=== PATIENT | female | born 1990 ===

== ENCOUNTER 2021-04-20 23:04 | Emergency (ER) | payer MEDICAID ==
[2021-04-21] MEDS ORDERED: CYCLOBENZAPRINE 10 MG TAB PO ONE (07:03)
[2021-04-21] MEDS ORDERED: KETOROLAC 60 MG/2 ML INJ IM ONE (07:03)
[2021-04-21] MEDS ORDERED: predniSONE 20 MG TAB PO ONE (07:03)
--- NOTE | 2021-04-21 07:41 | Emergency Department Report ---
ED Chest Pain HPI - General Chief Complaint: Chest Pain Stated Complaint: SOB/CP X 2 DAYS Time Seen by Provider: 04/21/21 06:44 Source: patient Mode of arrival: Ambulatory Limitations: No Limitations - History of Present Illness Initial Comments: This is a 30-year-old female nontoxic, well nourished in appearance, no acute signs of distress presents to the ED with c/o of left sided thoracic paraspinal pain with radiation to left shoulder and chest with a tingling sensation towards left arm times several days. Patient denies any injuries or trauma. Patient stated pain is aggravated with movement. Patient stated has some shortness of breath associated with the pain. Patient describes pain as sharp intermittently. Patient denies any upper respiratory symptoms. Patient denies any hemoptysis, fever, chills, nausea, vomiting, headache, stiff neck, numbness, tingling, abdominal pain. Patient denies pleuritic chest pain. Patient denies any recent travels or long car rides. Patient denies any recent surgeries or any sick contacts. Patient denies any drug allergies or significant past medical history. Patient stated had 2 negative PCR test and 1 negative rapid test for COVID. Patient stated she is COVID vaccinated as well. MD Complaint: chest pain -: days(s) Pain Location: other (left throacic paraspinal) Pain Radiation: LUE, other (chest) Severity: mild Quality: sharp Consistency: intermittent Improves With: rest Worsens With: palpation, movement re: denies: nausea, vomting, diaphoresis, dyspnea, sense of impending doom Other Symptoms: denies: cough, fever, syncope, rash, acid taste in mouth, leg swelling, palpitations, burping Treatments Prior to Arrival: none Aspirin use within the Past 7 Days: (0) No - Related Data On Oral Contraceptives: No Previous Rx's Medication Instructions Recorded Last Taken Type Cyclobenzaprine [Flexeril] 10 mg PO QHS PRN #10 tab 04/21/21 Unknown Rx Naproxen 500 mg PO Q12H PRN #12 tab 04/21/21 Unknown Rx Allergies Allergy/AdvReac Type Severity Reaction Status Date / Time No Known Allergies Allergy Unverified 04/20/21 23:08 Heart Score - HEART Score History: Slightly suspicious EKG: Normal Age: < 45 Risk factors: No known risk factors Troponin: < normal limit HEART Score: 0 - EKG Read Time Time EKG Completed: 23:59 EKG Read Time: 00:00 - Critical Actions Critical Actions: 0-3 pts:0.9-1.7%risk of adverse cardiac event.Candidate for discharge ED Review of Systems ROS: Stated complaint: SOB/CP X 2 DAYS Other details as noted in HPI Comment: All other systems reviewed and negative Constitutional: denies: chills, fever Eyes: denies: eye pain, eye discharge, vision change ENT: denies: ear pain, throat pain Respiratory: shortness of breath. denies: cough, wheezing Cardiovascular: chest pain. denies: palpitations Endocrine: no symptoms reported Gastrointestinal: denies: abdominal pain, nausea, diarrhea Genitourinary: denies: urgency, dysuria, discharge Musculoskeletal: back pain. denies: joint swelling, arthralgia Skin: denies: rash, lesions Neurological: denies: headache, weakness, paresthesias Psychiatric: denies: anxiety, depression Hematological/Lymphatic: denies: easy bleeding, easy bruising ED Past Medical Hx - Medications Home Medications: Home Medications Medication Instructions Recorded Confirmed Last Taken Type Cyclobenzaprine [Flexeril] 10 mg PO QHS PRN #10 tab 04/21/21 Unknown Rx Naproxen 500 mg PO Q12H PRN #12 tab 04/21/21 Unknown Rx ED Physical Exam - General Limitations: No Limitations General appearance: alert, in no apparent distress - Head Head exam: Present: atraumatic, normocephalic - Eye Eye exam: Present: normal appearance - Neck Neck exam: Present: normal inspection, full ROM. Absent: tenderness, meningismus, lymphadenopathy - Respiratory Respiratory exam: Present: normal lung sounds bilaterally, chest wall tenderness (left side). Absent: respiratory distress, wheezes, rales, rhonchi, stridor, accessory muscle use, decreased breath sounds, prolonged expiratory - Cardiovascular Cardiovascular Exam: Present: regular rate, normal rhythm, normal heart sounds. Absent: bradycardia, tachycardia, irregular rhythm, systolic murmur, diastolic murmur, rubs, gallop - GI/Abdominal GI/Abdominal exam: Present: soft, normal bowel sounds. Absent: distended, tenderness, guarding, rebound, rigid - Extremities Exam Extremities exam: Present: normal inspection, full ROM, normal capillary refill. Absent: tenderness - Back Exam Back exam: Present: normal inspection, full ROM, paraspinal tenderness (left throacic paraspainal ). Absent: tenderness, CVA tenderness (R), CVA tenderness (L), muscle spasm, vertebral tenderness, rash noted - Expanded Back Exam Expanded Back exam: Absent: saddle anesthesia Back exam: Negative Straight Leg Raising: Left, Right 1 - pain here - Neurological Exam Neurological exam: Present: alert, oriented X3 - Psychiatric Psychiatric exam: Present: normal affect, normal mood - Skin Skin exam: Present: warm, dry, intact, normal color. Absent: rash ED Course Vital Signs 04/20/21 04/21/21 04/21/21 23:09 11:23 11:45 Temperature 98.2 F 98.7 F 98.0 F Pulse Rate 99 H 76 79 Respiratory 20 18 16 Rate Blood Pressure 149/88 Blood Pressure 146/75 112/66 [Right] O2 Sat by Pulse 100 100 100 Oximetry - Reevaluation(s) Reevaluation #1: 04/21/21 07:40 Patient is speaking in full sentences with no signs of distress noted. Reevaluation #2: 04/21/21 09:36 Upon reevaluation, patient's pain has significantly resolved since ED treatment. A repeat EKG and troponin will be obtained and if within normal limits patient will be discharged with appropriate follow-up ABRAHAM score - Abraham Score Age > 65: (0) No Aspirin use within the Past 7 Days: (0) No 3 or more CAD Risk Factors: (0) No 2 or more Angina events in past 24 hrs: (0) No Known CAD with more than 50% Stenosis: (0) No Elevated Cardiac Markers: (0) No ST Deviation Greater than 0.5mm: (0) No ABRAHAM Score: 0 ED Medical Decision Making - Lab Data Result diagrams: 04/21/21 07:17 04/21/21 07:17 Lab Results 04/21/21 04/21/21 04/21/21 Range/Units 07:17 07:17 07:17 WBC 9.3 (4.5-11.0) K/mm3 RBC 4.56 (3.65-5.03) M/mm3 Hgb 12.4 (10.1-14.3) gm/dl Hct 39.2 (30.3-42.9) % MCV 86 (79-97) fl MCH 27 L (28-32) pg MCHC 32 (30-34) % RDW 14.2 (13.2-15.2) % Plt Count 252 (140-440) K/mm3 Lymph % (Auto) 21.9 (13.4-35.0) % Iron % (Auto) 7.3 (0.0-7.3) % Eos % (Auto) 0.2 (0.0-4.3) % Baso % (Auto) 0.7 (0.0-1.8) % Lymph # (Auto) 2.0 (1.2-5.4) K/mm3 Iron # (Auto) 0.7 (0.0-0.8) K/mm3 Eos # (Auto) 0.0 (0.0-0.4) K/mm3 Baso # (Auto) 0.1 (0.0-0.1) K/mm3 Seg Neutrophils % 69.9 (40.0-70.0) % Seg Neutrophils # 6.5 (1.8-7.7) K/mm3 PT (12.2-14.9) Sec. INR (0.87-1.13) APTT (24.2-36.6) Sec. D-Dimer (0-234) ng/mlDDU Sodium 144 (137-145) mmol/L Potassium 3.8 (3.6-5.0) mmol/L Chloride 110.6 H (98-107) mmol/L Carbon Dioxide 21 L (22-30) mmol/L Anion Gap 16 mmol/L BUN 9 (7-17) mg/dL Creatinine 0.8 (0.6-1.2) mg/dL Estimated GFR > 60 ml/min BUN/Creatinine Ratio 11 % Glucose 89 (65-100) mg/dL Calcium 9.7 (8.4-10.2) mg/dL Total Bilirubin 0.20 (0.1-1.2) mg/dL AST 12 (5-40) units/L ALT 10 (7-56) units/L Alkaline Phosphatase 84 (35-129) units/L Troponin T < 0.010 (0.00-0.029) ng/mL Total Protein 7.7 (6.3-8.2) g/dL Albumin 4.7 (3.9-5) g/dL Albumin/Globulin Ratio 1.6 % HCG, Qual Negative (Negative) 04/21/21 04/21/21 Range/Units 07:17 10:27 WBC (4.5-11.0) K/mm3 RBC (3.65-5.03) M/mm3 Hgb (10.1-14.3) gm/dl Hct (30.3-42.9) % MCV (79-97) fl MCH (28-32) pg MCHC (30-34) % RDW (13.2-15.2) % Plt Count (140-440) K/mm3 Lymph % (Auto) (13.4-35.0) % Iron % (Auto) (0.0-7.3) % Eos % (Auto) (0.0-4.3) % Baso % (Auto) (0.0-1.8) % Lymph # (Auto) (1.2-5.4) K/mm3 Iron # (Auto) (0.0-0.8) K/mm3 Eos # (Auto) (0.0-0.4) K/mm3 Baso # (Auto) (0.0-0.1) K/mm3 Seg Neutrophils % (40.0-70.0) % Seg Neutrophils # (1.8-7.7) K/mm3 PT 13.3 (12.2-14.9) Sec. INR 0.91 (0.87-1.13) APTT 29.7 (24.2-36.6) Sec. D-Dimer 135.00 (0-234) ng/mlDDU Sodium (137-145) mmol/L Potassium (3.6-5.0) mmol/L Chloride (98-107) mmol/L Carbon Dioxide (22-30) mmol/L Anion Gap mmol/L BUN (7-17) mg/dL Creatinine (0.6-1.2) mg/dL Estimated GFR ml/min BUN/Creatinine Ratio % Glucose (65-100) mg/dL Calcium (8.4-10.2) mg/dL Total Bilirubin (0.1-1.2) mg/dL AST (5-40) units/L ALT (7-56) units/L Alkaline Phosphatase (35-129) units/L Troponin T < 0.010 (0.00-0.029) ng/mL Total Protein (6.3-8.2) g/dL Albumin (3.9-5) g/dL Albumin/Globulin Ratio % HCG, Qual (Negative) - EKG Data 04/21/21 23:59 Sinus arrhythmia 72 bpm. Atrial premature complex. Some ST elevation which are normal early repolarization pattern. No STEMI. Reviewed and signed by MD. 04/21/21 09:51 Sinus sinus rhythm at 62 bpm. Atrial premature complex. No significant ST or T wave abnormalities. Reviewed and signed by - Radiology Data [facility] [address] [place] [address] XRay Report Signed Patient: ROGELIO KENYON MR#: [id number] 0 : 1990 Acct:[id number] Age/Sex: 30 / F ADM Date: 04/20/21 Loc: ED Attending Dr: Ordering Physician: ADITYA MATTHEW NP Date of Service: 04/21/21 Procedure(s): XR chest routine 2V Accession Number(s): [id number] cc: ADITYA MATTHEW NP Fluoro Time In Minutes: CHEST 2 VIEWS INDICATION: Chest Pain. COMPARISON: None. FINDINGS: Support devices: None. Heart: Within normal limits. Lungs/Pleura: No acute air space or interstitial disease. No significant pleural effusion. IMPRESSION: No acute findings. Signer Name: Brandon Martinez MD Signed: 04/21/2021 8:49 AM Workstation Name: [id number] Transcribed By: ES Dictated By: Brandon Martinez MD Electronically Authenticated By: Brandon Martinez MD Signed Date/Time: 04/21/21848 DD/ 7 TD/TT: - Medical Decision Making This is a 30-year-old female that presents with chest pain and muscle strain. Patient is stable and was examined by me. ABRAHAM and HEART score 0 pints. PERC score for DVT/SVT/PE 0 points. Negative d-dimmer. EKG normal sinus rhythm with no significant changes in ST. Chest xray dictated by the radiologist. PAtient i s notified of the Xray report with no questions noted. Labs within normal limits. Negative troponin x2. Patient received treatment in the ED which stated symptoms are improving subsided. Patient was instructed to Follow-up with a primary care/manager sales doctor in 2 days or if symptoms worsen and continue return to emergency room as soon as possible. At time of discharge, the patient does not seem toxic or ill in appearance. No acute signs of distress noted. Patient agrees to discharge treatment plan of care. No further questions noted by the patient. Critical care attestation.: If time is entered above; I have spent that time in minutes in the direct care of this critically ill patient, excluding procedure time. ED Disposition Clinical Impression: Muscle strain Chest pain, unspecified Qualifiers: Chest pain type: unspecified Qualified Code(s): R07.9 - Chest pain, unspecified Disposition: HOME / SELF CARE / HOMELESS Is pt being admited?: No Does the pt Need Aspirin: No Condition: Stable Instructions: Cyclobenzaprine tablets, Nonspecific Chest Pain, Adult Additional Instructions: Follow-up with a primary care/manager sales doctor in 2 days or if symptoms worsen and continue return to emergency room as soon as possible. Take naproxen and Flexeril as prescribed. Do not operate heavy machinery while taking Flexeril due to sedation Prescriptions: Cyclobenzaprine [Flexeril] 10 mg PO QHS PRN #10 tab PRN Reason: Muscle Spasm Naproxen 500 mg PO Q12H PRN #12 tab PRN Reason: Pain , Severe (7-10) Referrals: ALMA ROSA TURNER MD [Staff Physician] - 04/22/21 MARY GARCIA MD [Staff Physician] - 04/22/21 PRIMARY CAREMD [Primary Care Provider] - AMIE Forms: Work/School Release Form(ED) Time of Disposition: 11:24
[2021-04-21 07:57] LABS: Basophils # (Auto) 0.1 K/mm3 (0.0-0.1); Basophils % (Auto) 0.7 % (0.0-1.8); Eosinophils % (Auto) 0.2 % (0.0-4.3); Hematocrit 39.2 % (30.3-42.9); Hemoglobin 12.4 gm/dl (10.1-14.3); Lymphocytes % (Auto) 21.9 % (13.4-35.0); Mean Corpuscular HGB Conc 32 % (30-34); Mean Corpuscular Volume 86 fl (79-97); Monocytes # (Auto) 0.7 K/mm3 (0.0-0.8); Monocytes % (Auto) 7.3 % (0.0-7.3); Platelet Count 252 K/mm3 (140-440); Red Blood Count 4.56 M/mm3 (3.65-5.03); Red Cell Distribution Width 14.2 % (13.2-15.2)
[2021-04-21 08:07] LABS: INR 0.91 (0.87-1.13); Partial Thromboplastin Time 29.7 Sec. (24.2-36.6)
[2021-04-21 08:23] LABS: Alanine Aminotransferase 10 units/L (7-56); Albumin 4.7 g/dL (3.9-5); BUN/Creatinine Ratio 11; Blood Urea Nitrogen 9 mg/dL (7-17); Calcium 9.7 mg/dL (8.4-10.2); Hemolysis Index 7
--- NOTE | 2021-04-21 08:53 | XRay Report ---
CHEST 2 VIEWS INDICATION: Chest Pain. COMPARISON: None. FINDINGS: Support devices: None. Heart: Within normal limits. Lungs/Pleura: No acute air space or interstitial disease. No significant pleural effusion. IMPRESSION: No acute findings. Signer Name: Brandon Martinez MD Signed: 04/21/2021 8:49 AM Workstation Name: [id number]
[2021-04-21 11:49] VITALS: BP 149/88
== END 2021-04-21 11:49 | disposition home or self-care (01) ==
LOC: ED 23:04
DX: T14.8XXA Other injury of unspecified body region, initial encounter (principal); R07.9 Chest pain, unspecified; X58.XXXA Exposure to other specified factors, initial encounter; Y93.89 Activity, other specified; Y92.89 Other specified places as the place of occurrence of the external cause; Y99.8 Other external cause status
CPT/HCPCS: 36415; 71046; 80053; 84484; 84703; 85025; 85379; 85610; 85730; 93005; 93010; 96372; 99284; J1885; J7512